=== PATIENT | female | born 1980 | race Two or more races ===

== ENCOUNTER → 2024-03-07 | Outpatient (CLI) | payer BC, SELFPAY ==
--- NOTE | 2024-03-07 | XR_ITS ---
Examination: Hand, left 3 views Technique: Hand AP, oblique, lateral 3 views Date and time of exam: March 07, 2024 1231 hours INDICATIONS: Patient fell 3 weeks ago with injury to the hand, hand pain FINDINGS: Mild deformity at the base of the fourth metacarpal which may be old but clinical correlation advised No dislocation IMPRESSION: Consider CT scan left hand follow-up to assess deformity base fourth metacarpal
--- NOTE | 2024-03-07 | XR_ITS ---
Examination: Wrist, left 3 views Technique: Wrist AP, oblique, lateral 3 views Date and time of exam: March 07, 2024 at 1231 hours INDICATIONS: Patient fell 4 weeks ago with injury to the wrist, wrist pain FINDINGS: Mild deformity base fourth metacarpal Carpal bones are intact IMPRESSION: Recommend CT scan left wrist follow-up to assess mild deformity base fourth metacarpal
== END | disposition home or self-care (01) ==
PROVIDERS: PCP Nurse Practitioner Family; Referring Provider Nurse Practitioner Family; Visit Provider Nurse Practitioner Family
DX: S69.92XA Unspecified injury of left wrist, hand and finger(s), initial encounter (principal); W19.XXXA Unspecified fall, initial encounter
CPT/HCPCS: 73110; 73130

== ENCOUNTER → 2024-05-30 | Outpatient (CLI) | payer BC, SELFPAY ==
[2024-05-30 17:04] LABS: Collection Type, Urine Clean Catch
[2024-05-30 17:27] LABS: Basophils # (Auto) 0.1 Thou/mm3 (0.0-0.2); Basophils % (Auto) 1 % (0-2.5); Eosinophils # (Auto) 0.2 Thou/mm3 (0.0-0.5); Eosinophils % (Auto) 2 % (0-10); Hematocrit 44.3 % (36.0-46.0); Hemoglobin 15.3 g/dL (12.0-16.0); Immature Granulocytes % (Auto) 0 % (0-0); Immature Granulocytes Auto 0.04 Thou/mm3 (0.00-0.00); Lymphocytes # (Auto) 2.9 Thou/mm3 (1.0-4.8); Lymphocytes % (Auto) 31 % (10-50); Mean Corpuscular HGB Conc 34.5 g/dl (31.0-37.0); Mean Corpuscular Hemoglobin 29.5 pg (25.0-35.0); Mean Corpuscular Volume 85 fL (80-100); Monocytes # (Auto) 0.3 Thou/mm3 (0.0-0.8); Monocytes % (Auto) 3 % (0-12); Neutrophils % (Auto) 63 % (37-80); Nucleated Red Blood Cell % 0 /100 WBC (0); Platelet Count 315 Thou/mm3 (140-440); Red Blood Count 5.19 Miln/mm3 (4.00-5.20); White Blood Count 9.6 Thou/mm3 (3.6-11.0)
[2024-05-30 17:33] LABS: Bacteria,Urine Rare; Bilirubin,Urine Negative (Negative); Blood,Urine Negative (Negative); Clarity,Urine Clear (Clear/Hazy); Color,Urine Yellow (Lt Yel-Yel); Glucose, Urine 4+ (Negative); Ketones,Urine Trace (Negative); Leukocyte Esterase,Urine Negative (Negative); Nitrite,Urine Negative (Negative); Protein,Urine 1+ (Neg - Trace); RBC,Urine 16 /hpf (0-3); Squamous Epithelial Cell,Urine 2 /hpf (0-5); Urobilinogen,Urine Negative mg/dL (0.0-1.0); WBC,Urine 6 /hpf (0-5)
[2024-05-30 17:34] LABS: Specific Gravity,Urine 1.015 (1.001-1.035)
[2024-05-30 18:16] LABS: Glucose Estimated Average 258 mg/dL (80-131); Hemoglobin A1C 10.6 % Hgb (4.8-6.0)
[2024-05-30 18:22] LABS: Alanine Aminotransferase 25 U/L (10-49); Albumin, Serum 4.3 gm/dL (3.5-5.0); Albumin/Globulin Ratio 1.4 (1.2-2.2); Alkaline Phosphatase 139 U/L (46-116); Anion Gap 6 (7-16); Aspartate Amino Transferase 14 U/L (0-34); BUN/Creatinine Ratio 14 Ratio (12-20); Bilirubin,Total 1.1 mg/dL (0.3-1.2); Blood Urea Nitrogen 13 mg/dL (9-23); Calcium 9.3 mg/dL (8.3-10.6); Calcium (Corrected) 9.3 mg/dL (8.5-10.1); Carbon Dioxide 28.2 mMol/L (20.0-31.0); Cardiac Risk Estimate 4.3 RATIO (3.7-5.6); Chloride 101 mMol/L (98-107); Cholesterol 170 mg/dL (132-200); Creatinine (Component) 0.9 mg/dL (0.6-1.3); Glucose 294 mg/dL (74-106); HDL Cholesterol 40 mg/dL (40-60); LDL Cholesterol,Calculated 112 mg/dL (0-130); Osmolality,Calculated 281 (275-295); Potassium 4.5 mMol/L (3.4-5.1); Sodium 135 mMol/L (136-145); Thyroid Stimulating Hormone 4.31 uIU/mL (0.55-4.78); Total Protein 7.3 gm/dL (5.7-8.2); Triglycerides 89 mg/dL (30-150); Vitamin D 25 Hydroxy Total 18.6 ng/mL (7.3-40.2); eGFR > 60 See Note
[2024-05-30 18:24] LABS: Creatinine MALB Rnd Ur 188 mg/dL (30-125); Microalbumin Creat Ratio 26 mg/gCrea (<30); Microalbumin, Random Urine 48 mg/L (0-300)
== END | disposition home or self-care (01) ==
LOC: COPL 16:43
PROVIDERS: PCP Nurse Practitioner Family; Referring Provider Nurse Practitioner Family; Visit Provider Nurse Practitioner Family
DX: Z00.00 Encounter for general adult medical examination without abnormal findings (principal); E55.9 Vitamin D deficiency, unspecified; N39.0 Urinary tract infection, site not specified; R10.9 Unspecified abdominal pain; E03.9 Hypothyroidism, unspecified; Z79.899 Other long term (current) drug therapy; Z13.29 Encounter for screening for other suspected endocrine disorder; Z13.0 Encounter for screening for diseases of the blood and blood-forming organs and certain disorders involving the immune mechanism; Z13.220 Encounter for screening for lipoid disorders
CPT/HCPCS: 36415; 80053; 80061; 81001; 82043; 82306; 82570; 83036; 84443; 85025; 87086

== ENCOUNTER → 2024-06-20 | Outpatient (CLI) | payer BC, SELFPAY ==
--- NOTE | 2024-06-20 14:44 | XR_ITS ---
Examination: Hand, left 3 views Technique: Hand AP, oblique, lateral 3 views Date and time of exam: June 20, 2024 1455 hours INDICATIONS: Patient fell one month ago with injury to the hand, hand pain. FINDINGS: Moderate osteopenia No acute fracture No dislocation IMPRESSION: No acute fracture No foreign body
--- NOTE | 2024-06-20 14:44 | XR_ITS ---
Examination: Right elbow 3 views Technique: Elbow AP, oblique, lateral 3 views Exam date and time: June 20, 2024 at 1455 hours INDICATIONS: Right elbow pain beginning 2 months ago. FINDINGS: No fracture or dislocation No significant arthritic change No elbow effusion IMPRESSION: No fracture or significant arthritic change.
--- NOTE | 2024-06-20 14:44 | XR_ITS ---
Examination: Wrist, left 3 views Technique: Wrist AP, oblique, lateral 3 views Date and time of exam: June 20, 2024 1455 hours INDICATIONS: Patient fell last month with injury to the wrist, wrist pain. FINDINGS: No acute fracture No dislocation No foreign body IMPRESSION: No acute fracture
== END | disposition home or self-care (01) ==
LOC: CDIM 13:56
PROVIDERS: PCP Nurse Practitioner Family; Referring Provider Nurse Practitioner Gerontology; Visit Provider Nurse Practitioner Gerontology
DX: M25.521 Pain in right elbow (principal); S69.92XA Unspecified injury of left wrist, hand and finger(s), initial encounter; W19.XXXA Unspecified fall, initial encounter
CPT/HCPCS: 73080; 73110; 73130

== ENCOUNTER → 2024-09-15 | Outpatient (CLI) | payer BC, SELFPAY ==
[2024-09-15 17:44] LABS: Glucose Estimated Average 160 mg/dL (80-131); Hemoglobin A1C 7.2 % Hgb (4.8-6.0)
[2024-09-15 17:57] LABS: Follicle Stimulating Hormone 13.42 mIU/mL (See Note)
[2024-09-25 11:03] LABS: DHEA Sulfate* 148 mcg/dL (19-231); Estrogen, Total, Serum* 213 pg/mL; Luteinizing Hormone* 15.1 mIU/mL; Progesterone,LC/MS* 0.3 ng/mL; Testosterone, Free,Dialysis 3.6 pg/mL (0.1-6.4); Testosterone, Total, Dialysis 13 ng/dL (2-45)
== END | disposition home or self-care (01) ==
LOC: COPL 16:53
PROVIDERS: PCP Nurse Practitioner Family; Referring Provider Nurse Practitioner Family; Visit Provider Nurse Practitioner Family
DX: E11.9 Type 2 diabetes mellitus without complications (principal); N95.1 Menopausal and female climacteric states; R53.82 Chronic fatigue, unspecified; R53.83 Other fatigue
CPT/HCPCS: 36415; 82627; 82672; 83001; 83002; 83036; 84144; 84402; 84403

== ENCOUNTER → 2024-11-22 | Outpatient (CLI) | payer BC, SELFPAY ==
--- NOTE | 2024-11-22 14:00 | XR_ITS ---
Examination: MRI right elbow, without contrast Date and time of exam: November 22, 2024 1502 hours INDICATIONS: Patient fell 6 months ago with injury to the elbow, elbow pain Technique: Multiple axial sagittal and coronal images of the right elbow have been obtained with the Siemens high-resolution 1.5 Selene MRI scanner. Images obtained include T2-weighted fat-suppressed sagittal sections, TR 3500, TE 46, T2 weighted coronal fat suppressed images, TR 3050, TE 84, T2-weighted transverse fat suppressed images, TR 3260, TE 63, proton density transverse images, TR 4720 TE 46, and T1 weighted coronal images, TR 560, TE 13. Findings: No marrow edema bone contusion or occult fracture No avascular necrosis. Small elbow effusion. Triceps tendon intact Intact long head of the biceps insertion into the radial tuberosity Mild strain common flexor and common extensor tendons No ossified joint bodies IMPRESSION: No marrow edema bone contusion or occult fracture No avascular necrosis Intact long head of the biceps insertion into the radial tuberosity Mild strain common flexor and common extensor tendons
--- NOTE | 2024-11-22 14:45 | XR_ITS ---
Examination: MRI left hand, without contrast Date and time of exam: November 22, 2024 1436 hours INDICATIONS: Patient fell 6 months ago with injury to the hand, first digit pain Technique: Multiple axial sagittal and coronal images of the left hand have been obtained with the Siemens high-resolution 1.5 Selene MRI scanner. Images obtained include T2-weighted fat-suppressed sagittal sections, TR 3500, TE 46, T2 weighted coronal fat suppressed images, TR 3050, TE 84, T2-weighted transverse fat suppressed images, TR 3260, TE 63, proton density transverse images, TR 4720 TE 46, and T1 weighted coronal images, TR 560, TE 13. Findings: Adequate marrow signal No brain contusion marrow edema or occult fracture or avascular necrosis The ulnar collateral ligament is thickened and projects away from the joint at the proximal margin of the abductor aponeurosis There is edema around the flexor tendon at the level of the proximal phalanx first digit but the tendon is intact IMPRESSION: Moderate strain ulnar collateral ligament Tendinitis of the flexor tendon at the level of the proximal phalanx first digit
== END | disposition home or self-care (01) ==
PROVIDERS: PCP Nurse Practitioner Family
DX: M24.242 Disorder of ligament, left hand (principal); M67.844 Other specified disorders of tendon, left hand; S56.511A Strain of other extensor muscle, fascia and tendon at forearm level, right arm, initial encounter; X58.XXXA Exposure to other specified factors, initial encounter
CPT/HCPCS: 73218; 73221

== ENCOUNTER 2024-12-04 19:50 | Emergency (ER) | payer BC, SELFPAY ==
[2024-12-04 19:52] VITALS: BMI 42.9
--- NOTE | 2024-12-04 19:57 | EKG_ITS ---
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
[2024-12-04 20:09] VITALS: BP 139/88; PULSE 103; RESP 18; TEMP 36.8; O2SAT 96
--- NOTE | 2024-12-04 20:12 | XR_ITS ---
EXAMINATION: PA chest single view TECHNIQUE: Upright PA chest single view Date and time: December 04, 2024, 2038 hours INDICATIONS: Chest pain cardiac palpitations beginning last week. FINDINGS: Normal heart size The lungs are clear. The osseous rectors are intact IMPRESSION: No active disease
--- NOTE | 2024-12-04 20:13 | PD.EDRME ---
Rapid Medical Screening Exam RME Arrival date/time: 12/04/24 19:50 This is a case of 44-year-old female with history of tachycardia and palpitation came in in the emergency room due to on and off chest pain and palpitation with shortness of breath since Wednesday's worsening of the symptoms this patient decided to start consult here in the emergency room Chief Complaint: General Adult/Misc Complain Time Seen by Provider: 12/04/24 19:53 Vital signs: Vital Signs Temperature 98.3 F 12/04/24 20:09 Pulse Rate 103 H 12/04/24 20:09 Respiratory Rate 18 12/04/24 20:09 Blood Pressure 139/88 H 12/04/24 20:09 Pulse Oximetry (%) 96 12/04/24 20:09 Oxygen Delivery Method Room Air 12/04/24 20:09
[2024-12-04 20:48] LABS: Collection Type, Urine Clean Catch; WBC,Urine 0 /hpf (0-5)
[2024-12-04 20:58] LABS: Bilirubin,Urine Negative (Negative); Blood,Urine Negative (Negative); Clarity,Urine Clear (Clear/Hazy); Color,Urine Lt-Yellow (Lt Yel-Yel); Glucose, Urine 4+ (Negative); Ketones,Urine Negative (Negative); Leukocyte Esterase,Urine Negative (Negative); Nitrite,Urine Negative (Negative); PH,Urine 6.0 (5.0-7.0); Protein,Urine Negative (Neg - Trace); RBC,Urine 3 /hpf (0-3); Specific Gravity,Urine 1.024 (1.001-1.035); Squamous Epithelial Cell,Urine 1 /hpf (0-5); Urobilinogen,Urine Negative mg/dL (0.0-1.0)
[2024-12-04 20:59] LABS: HCG Qualitative,Urine Negative
[2024-12-04 21:05] LABS: D-Dimer < 250 ng/mL (<600)
[2024-12-04 21:19] LABS: Alanine Aminotransferase 43 U/L (10-49); Albumin, Serum 4.3 gm/dL (3.5-5.0); Albumin/Globulin Ratio 1.5 (1.2-2.2); Alkaline Phosphatase 110 U/L (46-116); Anion Gap 8 (7-16); Aspartate Amino Transferase 29 U/L (0-34); BUN/Creatinine Ratio 10 Ratio (12-20); Bilirubin,Total 0.4 mg/dL (0.3-1.2); Blood Urea Nitrogen 10 mg/dL (9-23); Calcium 8.8 mg/dL (8.3-10.6); Calcium (Corrected) 8.8 mg/dL (8.5-10.1); Carbon Dioxide 27.0 mMol/L (20.0-31.0); Chloride 101 mMol/L (98-107); Creatinine (Component) 1.0 mg/dL (0.6-1.3); Estimated Creatinine Clearance 86.8 mL/min (>60); Globulin 2.9 gm/dL (2.3-3.5); Glucose 320 mg/dL (74-106); Osmolality,Calculated 282 (275-295); Potassium 4.8 mMol/L (3.4-5.1); Sodium 136 mMol/L (136-145); Thyroid Stimulating Hormone 7.95 uIU/mL (0.55-4.78); Total Protein 7.2 gm/dL (5.7-8.2); Troponin I < 0.002 ng/mL (0.0-0.045); eGFR > 60 See Note
--- NOTE | 2024-12-04 21:33 | PD.EDADULT ---
ED General RME/HPI General Chief complaint: General Adult/Misc Complain Stated complaint: CHEST PAIN, HEADACHE, DIZZY, HOT FLASH Time Seen by Provider: 12/04/24 19:53 Arrival date/time: 12/04/24 19:50 CC: Palpitations, nausea, chest pain, chest pressure HPI ongoing for months , but worse in the last week. Patient states that she is out of her Mounjaro and is taking a substitute medication as the pharmacy cannot supply it to her. During the administration of Mounjaro the patient states he feels quite better and her blood sugars are under control . The patient states she has been on levothyroxine for the past 2 years with no medication adjustments and was seen 6 months ago when she told her TSH levels were fine . Patient denies any vomiting diarrhea shortness of breath or difficulty breathing. RME / HPI RME / HPI narrative: 12/04/24 19:50 This is a case of 44-year-old female with history of tachycardia and palpitation came in in the emergency room due to on and off chest pain and palpitation with shortness of breath since Wednesday's worsening of the symptoms this patient decided to start consult here in the emergency room Related Data Home Medications ?Medication ?Instructions ?Recorded ?Confirmed albuterol sulfate 90 mcg/actuation 2 puff inhalation Q6HR WHEEZING #0 01/27/16 aerosol inhaler (Proventil HFA) inhalations alprazolam 0.5 mg tablet (Xanax) 0.5 mg PO BID PRN Anxiety 10/09/18 10/09/18 duloxetine 60 mg capsule,delayed 60 mg PO QDAY 10/09/18 10/09/18 release (Cymbalta) levothyroxine 25 mcg capsule 25 mcg PO QDAY 10/09/18 10/09/18 lisinopril 10 mg tablet 10 mg PO QDAY 10/09/18 10/09/18 Previous Rx's ?Medication ?Instructions ?Recorded levothyroxine 50 mcg capsule 50 mcg PO QDAY #30 caps 12/04/24 Allergies Allergy/AdvReac Type Severity Reaction Status Date / Time Sulfa (Sulfonamide Allergy Severe HIVES, Verified 07/09/23 14:37 Antibiotics) DECREASED BP, SOB, NAUSEA lactose Allergy Unknown Verified 07/09/23 14:37 metformin Allergy Rash Verified 10/13/25 19:52 Review of Systems Review of Systems Narrative Review of Systems: GEN: No fever, no chills, no weight loss EYES: No discharge, no visual changes, no pain HEENT: No ear pain, no congestion, no sore throat PULM: No shortness of breath, no cough, no congestion CV: No chest pain, no dyspnea on exertion, no palpitations GI: + nausea, no vomiting, no diarrhea, no pain, no constipation : No frequency, no urgency, no dysuria MUSC/SKEL: No joint pain, no back pain SKIN: No rash PSYCH: No hallucinations, no depression HEME/LYMPH: No easy bleeding or bruising tendencies NEURO: + weakness, no headache Past Medical History Past Medical History CARDIAC: Negative Congestive Heart Failure RESPIRATORY: Negative Chronic Obstructive Pulmonary Disease (COPD) GENITOURINARY: Negative Renal Disease ENDOCRINE: Negative Diabetes Mellitus Type 1 or Diabetes Mellitus Type 2 Social History SMOKING STATUS: Never smoker ED Exam Narrative Physical exam: [General: Morbidly obese not in any acute distress Head normocephalic HEENT: Eyes pupils are PERRLA EOMs are intact mouth pink moist membranes uvula is midline swallow symmetrical phonation is normal. All other subsystems of HEENT are within acceptable limits Neck is supple nontender Chest equal chest rise nontender to palpation Respiratory: Clear to auscultation no wheezes crackles or rubs CV: Rate rhythm is regular, accelerated, no murmurs rubs or clicks Abdomen is distended secondary to body habitus soft nontender no masses positive bowel sounds all 4 quadrants Back: No CVA tenderness no spinous process tenderness from cervical spine thoracic and lumbar spine Skin: Intact no petechiae rash induration ulceration or crepitus Extremities: Moving all extremity against resistance cap refill less than 2 seconds neurosensory intact Neuro: Awake alert oriented x3 Glascow coma 15 no focal deficits] Course Course Course Narrative: I suspect the patient's TSH is elevated secondary to inappropriate dosing of her levothyroxine is not ingested in 6 months. Patient also has not been on the Mounjaro which probably leads to her elevated blood glucose level. Patient be given insulin, waiting for free T4 to return and we will make adjustments to her levothyroxine. Based on ideal weight, patient's levothyroxine dosage should be 80 mcg when based on 1.6 mcg/kg/day. Quality Measures none Orders Category Date Time Status EKG (ED ONLY) *Do not use* NOW Care 12/04/24 19:57 Completed EKG (ED Only) Stat Exams 12/04/24 19:57 Draft XR chest 1V Stat Exams 12/04/24 20:12 Completed CBC Stat Lab 12/04/24 21:30 Received Comprehensive Metabolic Panel Stat Lab 12/04/24 20:19 Completed D-Dimer Stat Lab 12/04/24 20:19 Completed Free T4 (Free Thyroxine) Stat Lab 12/04/24 20:19 Completed HCG Qualitative,Urine Stat Lab 12/04/24 20:40 Completed TSH [Thyroid Stimulating Hormone] Stat Lab 12/04/24 20:19 Completed Troponin I Stat Lab 12/04/24 20:19 Completed Urinalysis Stat Lab 12/04/24 20:40 Completed Insulin Regular Med 12/04/24 21:33 Discontinued 5 unit SC X1 ONE Vital Signs Vital signs: Vital Signs Temperature 98.3 F 12/04/24 20:09 Pulse Rate 103 H 12/04/24 20:09 Respiratory Rate 18 12/04/24 20:09 Blood Pressure 139/88 H 12/04/24 20:09 Pulse Oximetry (%) 96 12/04/24 20:09 Oxygen Delivery Method Room Air 12/04/24 20:09 Discharge Plan Plan Patient Disposition: HOME (Self Care) Patient condition on transfer: Stable Prescriptions/Referrals Prescriptions/Med Rec: New levothyroxine 50 mcg capsule 50 mcg PO QDAY Qty: 30 1RF No Action albuterol sulfate [Proventil HFA] 6.7 GM HFA aerosol inhaler 2 puff Inhalation Q6HR Qty: 0 alprazolam [Xanax] 0.5 mg Tablet 0.5 mg PO BID PRN (Reason: Anxiety) lisinopril 10 mg Tablet 10 mg PO QDAY duloxetine [Cymbalta] 60 mg Capsule,Delayed Release(Dr/Ec) 60 mg PO QDAY levothyroxine 25 mcg Capsule 25 mcg PO QDAY Referrals: No Primary/Family,Physician [Primary Care Provider] - In 1 week Problem List Clinical Impression: Hypothyroidism, Hyperglycemia Patient/Caregiver Discharge Instructions Education Materials: High Blood Sugar (Hyperglycemia), ED Hypothyroidism Additional Instructions: Follow-up with your doctor in 4 to 6 weeks I have increased your dose of levothyroxine to 50 mcg please take this once a day, make sure you get rechecked in 6 weeks. Print Language: Ecuadorean Stand Alone Forms: Asya Award Info., Work/School Release, Patient Portal Info Letter NASEEM/DAISY Supervising Physician YUKI Supervising Physician: Marbin Leone ENP MDM Clinical Information Provided by: patient Medical Records reviewed [facility] Labs/Rad/Tests considered, not ordered None Chronic Illness/Social Conditions Explain: Diabetes hypothyroidism EKG Interpretation EKG #1: EKG Interpretation: EKG performed at 2006 shows a ventricular rate of 101 NM interval 158 QRS of 97 QTc of 399 this is sinus tachycardia. Labs Labs: interpreted by [place] Lab(s) Interpretation(s): CMP shows a glucose of 320 no other electrolyte imbalances renal impairment transaminitis or T. bili elevation TSH is 7.95 Urine is 4+ glucose no indicators of infection. Imaging Imaging interpretation: interpreted by [place] Imaging Interpretation(s): Chest x-ray is negative for any acute finding requires emergent or immediate intervention. Medication Administration(s) Medication Administration History Discontinued Medications Insulin Human Regular (Insulin Hum Regular 1 Unit/0.01 Ml (Per Unit)) 5 unit SC X1 ONE Stop: 12/04/24 21:34 Last Admin: 12/04/24 21:59 Dose: 5 unit Documented By: MELISSA Co-signed By: MIKE
[2024-12-04 21:42] LABS: Basophils # (Auto) 0.1 Thou/mm3 (0.0-0.2); Basophils % (Auto) 1 % (0-2.5); Eosinophils # (Auto) 0.3 Thou/mm3 (0.0-0.5); Eosinophils % (Auto) 4 % (0-10); Hematocrit 42.9 % (36.0-46.0); Hemoglobin 14.3 g/dL (12.0-16.0); Immature Granulocytes Auto 0.03 Thou/mm3 (0.00-0.00); Lymphocytes # (Auto) 2.9 Thou/mm3 (1.0-4.8); Lymphocytes % (Auto) 32 % (10-50); Mean Corpuscular HGB Conc 33.3 g/dl (31.0-37.0); Mean Corpuscular Hemoglobin 29.1 pg (25.0-35.0); Mean Corpuscular Volume 87 fL (80-100); Monocytes # (Auto) 0.4 Thou/mm3 (0.0-0.8); Monocytes % (Auto) 4 % (0-12); Neutrophils # (Auto) 5.4 Thou/mm3 (1.8-7.7); Neutrophils % (Auto) 59 % (37-80); Nucleated Red Blood Cell # 0.00 Thou/mm3 (0.00-0.00); Nucleated Red Blood Cell % 0 /100 WBC (0); Platelet Count 305 Thou/mm3 (140-440); RDW Standard Deviation 41.0 fL (36.4-46.3); Red Blood Count 4.92 Miln/mm3 (4.00-5.20); White Blood Count 9.1 Thou/mm3 (3.6-11.0)
[2024-12-04 21:52] VITALS: BP 137/93; PULSE 86; RESP 17; TEMP 36.6; O2SAT 96
[2024-12-04] MEDS: INSULIN HUM REGULAR 1 UNIT/0.01 ML (PER UNIT) 5 UNIT SC (21:59)
[2024-12-04 22:14] LABS: Free T4 (Free Thyroxine) 1.21 ng/dL (0.89-1.76)
[2024-12-04 22:40] VITALS: BP 118/74; PULSE 72; RESP 14; TEMP 36.4; O2SAT 97
== END 2024-12-04 22:42 | disposition home or self-care (01) ==
PROVIDERS: Nurse Practitioner Family; Emergency Provider Emergency Medicine
DX: E11.65 Type 2 diabetes mellitus with hyperglycemia (principal); E03.9 Hypothyroidism, unspecified; Z79.890 Hormone replacement therapy
CPT/HCPCS: 36415; 71045; 80053; 81001; 81025; 84439; 84443; 84484; 85025; 85379; 93005; 99283; J1815

== ENCOUNTER → 2025-02-21 | Outpatient (CLI) | payer BC, SELFPAY ==
[2025-02-21 12:10] LABS: Glucose Estimated Average 240 mg/dL (80-131); Hemoglobin A1C 10.0 % Hgb (4.8-6.0)
[2025-02-21 12:22] LABS: Thyroid Stimulating Hormone 3.97 uIU/mL (0.55-4.78)
== END | disposition home or self-care (01) ==
LOC: COPL 11:33
PROVIDERS: PCP Nurse Practitioner Family; Referring Provider Nurse Practitioner Family; Visit Provider Nurse Practitioner Family
DX: E03.9 Hypothyroidism, unspecified (principal); E11.9 Type 2 diabetes mellitus without complications
CPT/HCPCS: 36415; 83036; 84443